=== PATIENT | female | born 1990 | race Caucasian/White ===

== ENCOUNTER 2019-06-03 11:11 | Emergency (ER) | payer OTHER ==
[~2019-06-03] VITALS: Ht 160 cm; Wt 59.0 kg
[~2019-06-03 11:11] MED LIST: CEFDINIR300 MG PO; LEXAPRO10 MG PO
[2019-06-03] MEDS ORDERED: HYDROCODONE/APAP 5MG-325MG TAB PO ONE (11:30)
--- NOTE | 2019-06-03 11:33 | NUR ---
flu ans trep swabs collected and client providing urine sample at this time.
[2019-06-03] MEDS ORDERED: KETOROLAC TROMETHAMINE 60 MG/2 ML VIAL IM ONE (12:00)
[2019-06-03] MEDS ORDERED: DIAZEPAM 2 MG TAB PO ONE (12:00)
--- NOTE | 2019-06-03 12:01 | NUR ---
URINE AND SWABS WALKED TO LAB.
[2019-06-03 12:19] LABS: STREPTOCOCCUS GRP A ANTIGEN NEGATIVE (NEGATIVE)
[2019-06-03 12:29] LABS: INFLUENZAE A&B ANTIGEN (RAPID) NEGATIVE (NEGATIVE)
[2019-06-03 13:26] LABS: BASOPHILS % 0.3 % (0.0-1.0); EOSINOPHILS # (AUTO) 0.1 (0.0-0.4); EOSINOPHILS % 0.8 % (0.0-6.0); HEMATOCRIT 37.1 % (34.2-44.1); HEMOGLOBIN 12.7 g/dL (12.0-16.0); LYMPHOCYTES # (AUTO) 1.2 (1.0-3.2); LYMPHOCYTES % 15.8 % (18.0-39.1); MEAN CORPUSCULAR HGB CONC 34.2 g/dL (31-35); MEAN CORPUSCULAR VOLUME 81.7 fL (81-99); MONOCYTES # (AUTO) 0.4 (0.2-0.8); MONOCYTES % 4.5 % (4.4-11.3); NEUTROPHILS % 78.2 % (38.7-80.0); PLATELET COUNT 329 x10e3/uL (140-360); RED BLOOD COUNT 4.54 x10e6/uL (3.6-5.1)
--- NOTE | 2019-06-03 13:39 | NUR ---
client out to radiology for x-ray and MRI
[2019-06-03 13:46] LABS: ALANINE AMINOTRANSFERASE 10 IU/L (0-55); ALBUMIN/GLOBULIN RATIO 1.5 (0.8-2.0); ALKALINE PHOSPHATASE 50 IU/L (40-150); BLOOD UREA NITROGEN 13 mg/dL (7-26); BUN/CREATININE RATIO 23 (6-25); CARBON DIOXIDE 23 mmol/L (22-29); CHLORIDE 106 mmol/L (98-107); CREATININE, SERUM 0.56 mg/dL (0.57-1.11); EST GLOMERULAR FILTRATION RATE > 60 ML/MIN (60-); GLUCOSE 95 mg/dL (74-118); SODIUM 140 mmol/L (136-145)
--- NOTE | 2019-06-03 14:27 | Diagnostic Imaging Report ---
EXAMINATION: CHEST 2 VIEWS INDICATION: Cough COMPARISON: None FINDINGS: LINES/TUBES:None LUNGS:The lungs are well-inflated. No focal consolidation or pulmonary edema. PLEURA:No pleural effusion or pneumothorax. MEDIASTINUM:The cardiomediastinal silhouette appears normal in size and shape. BONES/SOFT TISSUES:No acute osseous injury. ABDOMEN:No free air under the diaphragm. IMPRESSION: No focal pneumonia or pulmonary edema. Signed by: Samantha La MD on 06/03/2019 2:24 PM
--- NOTE | 2019-06-03 14:49 | Diagnostic Imaging Report ---
MRI SPINE CERVICAL WO HISTORY: Neck pain COMPARISON: Chest radiograph 06/03/2019 TECHNIQUE: Sagittal T1, sagittal T2, sagittal inversion recovery, axial T2, axial T2 GRE, and axial T1 weighted MR images of the cervical spine were obtained without intravenous contrast. DISCUSSION: Alignment: Subtle reversal of the cervical lordosis at C4-C5. No scoliosis. Vertebrae: No definite evidence for fractures, infection, or neoplasm. Cervicomedullary junction: No abnormalities. Spinal cord: Normal in signal and morphology from the foramen magnum through T5-T6. Soft tissues: The palatine and lingual tonsils are mildly prominent. Prominent bilateral upper jugular chain lymph nodes may be reactive. Approximately 1.7 cm T2 hyperintense, heterogeneous right thyroid nodule is partially imaged. There is mild disc degeneration at C5-C6 with posterior annular fissure. C2-C3: Patent canal and foramina. C3-C4: Patent canal and foramina. C4-C5: Patent canal and foramina. C5-C6: Mild canal stenosis due to small central disc protrusion. No significant foraminal stenosis. C6-C7: Patent canal and foramina. C7-T1: Patent canal and foramina. IMPRESSION: 1. Mild C5-C6 disc degeneration with posterior annular fissure and small central disc protrusion that causes mild canal stenosis. 2. No significant foraminal stenosis. 3. Incidental, partially imaged 1.7 cm T2 hyperintense right thyroid nodule. Further evaluation with thyroid ultrasound is recommended. Signed by: Dr. Ivan Lira M.D. on 06/03/2019 2:47 PM
== END 2019-06-03 15:42 | disposition home or self-care (01) ==
LOC: ER 11:11
DX: R50.9 Fever, unspecified (principal); R05 Cough; M54.2 Cervicalgia; R51 Headache; R09.89 Other specified symptoms and signs involving the circulatory and respiratory systems
CPT/HCPCS: 36415; 71046; 72141; 80053; 81025; 83518; 85025; 87070; 87400; 99284; J1885